=== PATIENT | male | born 1950 | race Caucasian/White ===

== ENCOUNTER 2016-10-14 21:37 | Emergency (ER) | payer MEDICARE, OTHER ==
[~2016-10-14] VITALS: Ht 180.3 cm; Wt 94.0 kg
[~2016-10-14 21:37] MED LIST: AMOX500T PO; ASPI81CH CHEW; LISI-363 PO; LISI-515 PO; METO25TA6 PO; MULT-65 PO; PRIL20CA9 PO; TOPR25TA PO
[2016-10-14 21:47] VITALS: BP 146/84; PULSE 74; RESP 20; TEMP 97.4; O2SAT 100
--- NOTE | 2016-10-14 22:24 | PD ---
HPI Chief Complaint: Abdominal Pain Time Seen by Provider: 22:03 Travel History International Travel<30 days: No Contact w/Intl Traveler<30days: No Traveled to known affect area: No History of Present Illness HPI The patient is 65-year-old male that complains of right upper quadrant pain shortly after eating a bowl of corn chowder. This began at 8:30 PM tonight. He does have a history of gallstones and gallbladder colic. He still has his gallbladder. His only abdominal surgery is an appendectomy. He denies any fever. He has slight nausea and pain at this time. The pain radiated to the back on both sides. He denies any melanotic or bloody stools. He denies any dysuria, frequency or urgency. PFSH Past Medical History Blood Disorders: No Cancer: Yes (esophageal cancer) Cardiovascular Problems: Yes Chemotherapy: No COPD: No Diabetes: No Diminished Hearing: No Endocrine: No Gastrointestinal Disorders: Yes GERD: No Glaucoma: Yes Genitourinary: No Hepatitis: No Hiatal Hernia: No Hypertension: Yes Immune Disorder: No Musculoskeletal: No Neurologic: No Psychiatric: No Respiratory: No Radiation Therapy: Yes Sleep Apnea: No Thyroid Disease: No Ulcer: No Past Surgical History Abdominal Surgery: Yes (rih had extreme pain and couldn't walk after surgery) AICD: No Appendectomy: Yes Cardiac Surgery: No Ear Surgery: No Endocrine Surgery: No Eye Surgery: Yes Genitourinary Surgery: Yes (HYDROCELE) Gynecologic Surgery: No Joint Replacement: No Oral Surgery: Yes (T AND A) Pacemaker: No Thoracic Surgery: No Other Surgery: Yes (hydrocele pain) Social History Alcohol Use: No Tobacco Use: No Substance Use: No Allergies-Medications (Allergen,Severity, Reaction): Coded Allergies: No Known Allergies (Verified , 08/10/16) Reported Meds & Prescriptions Reported Meds & Active Scripts Active [id number] M 500 Mg Cap 500 Mg PO TID Z.0.toprol Xl 25 Mg2 25 Mg Bertrand 25 Mg PO DAILY [id number] Mg 20 Mg Tab 1 Tab PO BID Reported Toprol XL (Metoprolol Succinate) 25 Mg Tab 25 Mg PO DAILY Lisinopril 20 Mg Tab 20 Mg PO DAILY Multi-Vitamin Daily (Multiple Vitamin) 1 Tab Tab 1 Tab PO DAILY Aspirin 81 Mg Chew 81 Mg CHEW DAILY Prilosec (Omeprazole) 20 Mg Cap 20 Mg PO DAILY Review of Systems Except as stated in HPI: all other systems reviewed are Neg Physical Exam Narrative GENERAL: The patient is alert, oriented 3 in moderate apparent distress with his right upper quadrant abdominal pain. His vital signs are normal except for blood pressure 146/84. SKIN: Warm and dry. No skin rash is seen. HEAD: Atraumatic. Normocephalic. EYES: Pupils equal and round. No scleral icterus. No injection or drainage. ENT: No nasal bleeding or discharge. Mucous membranes pink and moist. NECK: Trachea midline. No JVD. CARDIOVASCULAR: Regular rate and rhythm. No murmur appreciated. RESPIRATORY: No accessory muscle use. Clear to auscultation. Breath sounds equal bilaterally. GASTROINTESTINAL: Abdomen soft, with tenderness in the right upper quadrant over the gallbladder, nondistended. Hepatic and splenic margins not palpable. No guarding or rebound is present and Proctor's sign is negative. MUSCULOSKELETAL: No obvious deformities. No clubbing. No cyanosis. No edema. NEUROLOGICAL: Awake and alert. No obvious cranial nerve deficits. Motor grossly within normal limits. Normal speech. PSYCHIATRIC: Appropriate mood and affect; insight and judgment normal. Data Data Last Documented VS Vital Signs Date Time Temp Pulse Resp B/P Pulse Ox O2 Delivery O2 Flow Rate FiO2 10/14/16 21:47 97.4 74 20 146/84 100 Orders Electrocardiogram (10/14/16 ) Complete Blood Count With Diff (10/14/16 22:18) Comprehensive Metabolic Panel (10/14/16 22:18) Lipase (10/14/16 22:18) Ondansetron Inj (Zofran Inj) (10/14/16 22:30) Hydromorphone Pf Inj (Dilaudid Pf Inj) (10/14/16 22:30) Sodium Chlor 0.9% 1000 Ml Inj (Ns 1000 M (10/14/16 22:30) Labs Laboratory Tests Test 10/14/16 22:15 White Blood Count 5.4 TH/MM3 Red Blood Count 4.81 MIL/MM3 Hemoglobin 14.7 GM/DL Hematocrit 41.2 % Mean Corpuscular Volume 85.8 FL Mean Corpuscular Hemoglobin 30.5 PG Mean Corpuscular Hemoglobin 35.6 % Concent Red Cell Distribution Width 11.9 % Platelet Count 173 TH/MM3 Mean Platelet Volume 6.9 FL Neutrophils (%) (Auto) 57.9 % Lymphocytes (%) (Auto) 25.0 % Monocytes (%) (Auto) 11.7 % Eosinophils (%) (Auto) 4.9 % Basophils (%) (Auto) 0.5 % Neutrophils # (Auto) 3.2 TH/MM3 Lymphocytes # (Auto) 1.3 TH/MM3 Monocytes # (Auto) 0.6 TH/MM3 Eosinophils # (Auto) 0.3 TH/MM3 Basophils # (Auto) 0.0 TH/MM3 CBC Comment DIFF FINAL Differential Comment Sodium Level 142 MEQ/L Potassium Level 4.3 MEQ/L Chloride Level 107 MEQ/L Carbon Dioxide Level 28.0 MEQ/L Anion Gap 7 MEQ/L Blood Urea Nitrogen 31 MG/DL Creatinine 1.20 MG/DL Estimat Glomerular Filtration 60 ML/MIN Rate Random Glucose 117 MG/DL Calcium Level 8.7 MG/DL Total Bilirubin 0.5 MG/DL Aspartate Amino Transf 47 U/L (AST/SGOT) Alanine Aminotransferase 40 U/L (ALT/SGPT) Alkaline Phosphatase 66 U/L Total Protein 7.4 GM/DL Albumin 3.9 GM/DL Lipase 191 U/L [facility] Medical Decision Making Medical Screen Exam Complete: Yes Emergency Medical Condition: Yes Medical Record Reviewed: Yes Interpretation(s) The CBC is normal with a white count of only 5400. The complete metabolic profile shows a BUN of 31, AST of 47 but is otherwise normal. The lipase is normal. Differential Diagnosis Gallbladder colic, acute cholecystitis, colitis, pyelonephritis Narrative Course It is now 10:55 PM and the patient feels "100% better". This appears to be gallbladder colic. The white count does not show any evidence of infection/ inflammation in the complete metabolic profile is normal except for the minimal elevation of the AST. Plan: The patient should avoid fatty foods and is given prescriptions for Zofran and Percocet. He should consult with the surgeon, going through Dr. Alfaro. Diagnosis Primary Impression: Gallbladder colic Med/Other Pt SpecificInfo: Prescription(s) given Daniel Cunningham MD Oct 14, 2016 22:24
[2016-10-14 22:30] LABS: AUTOMATED NEUTROPHIL # 3.2 TH/MM3 (1.8-7.7); BASOPHIL % 0.5 % (0.0-2.0); EOSINOPHIL # 0.3 TH/MM3 (0-0.4); EOSINOPHIL % 4.9 % (0.0-4.0); HEMATOCRIT 41.2 % (39.0-51.0); HEMO FLAGS DIFF FINAL; LYMPHOCYTE # 1.3 TH/MM3 (1.0-4.8); MEAN CELL VOLUME 85.8 FL (80.0-100.0); MEAN CORPUSCULAR HEMOGLOBIN 30.5 PG (27.0-34.0); MEAN CORPUSCULAR HGB CONC 35.6 % (32.0-36.0); MONO % 11.7 % (0.0-8.0); NEUT % 57.9 % (16.0-70.0); PLATELET COUNT 173 TH/MM3 (150-450); RED BLOOD COUNT 4.81 MIL/MM3 (4.50-5.90); RED CELL DISTRIBUTION WIDTH 11.9 % (11.6-17.2); WHITE BLOOD COUNT 5.4 TH/MM3 (4.0-11.0)
[2016-10-14] MEDS ORDERED: SODIUM CHLOR 0.9% 1000 ML INJ 1,000 ML IV SCH (22:30)
[2016-10-14] MEDS ORDERED: ONDANSETRON HCL 4 MG/2 ML VIAL IV ONE (22:30)
[2016-10-14] MEDS ORDERED: HYDROmorphone HCL PF 1 MG/ML VIAL IVP ONE (22:30)
[2016-10-14 22:36] LABS: CHLORIDE 107 MEQ/L (98-107); POTASSIUM 4.3 MEQ/L (3.5-5.1); SODIUM (NA) 142 MEQ/L (136-145)
[2016-10-14 22:40] LABS: ANION GAP 7 MEQ/L (5-15); BLOOD UREA NITROGEN 31 MG/DL (7-18)
[2016-10-14 22:43] LABS: ALT (GPT) 40 U/L (12-78); AST (GOT) 47 U/L (15-37); GLOMERULAR FILTRATION RATE 60 ML/MIN (>89)
[2016-10-14 22:45] LABS: TOTAL BILIRUBIN ADULT 0.5 MG/DL (0.2-1.0)
[2016-10-14 22:46] LABS: ALKALINE PHOSPHATASE 66 U/L (45-117)
[2016-10-14 22:50] VITALS: BP 150/81; PULSE 77; RESP 18; O2SAT 98
[2016-10-14] MEDS ORDERED: PERC5TAB12 PO (23:00)
[2016-10-14] MEDS ORDERED: ZOFR4TAB PO (23:00)
[2016-10-14 23:05] VITALS: RESP 18
[2016-10-14 23:25] VITALS: BP 126/80
--- NOTE | 2016-10-15 19:32 | EKG ---
Date Performed: 10/14/2016 Time Performed: 22:02:58 PTAGE: 65 years EKG: Sinus rhythm Since previous tracing, no significant change noted Normal ECG PREVIOUS TRACING : 02/12/2016 23.23 DOCTOR: Gerald Gillette Interpretating Date/Time 10/15/2016 19:32:10
[2016-12-07] MEDS ORDERED: STOO100C PO (13:50)
[2016-12-07] MEDS ORDERED: AMLO10TA2 PO (13:50)
[2016-12-07] MEDS ORDERED: ARTH650T PO (13:50)
[2016-12-07] MEDS ORDERED: ATOR20TA15 PO (13:50)
== END 2016-10-14 23:24 | disposition home or self-care (01) ==
LOC: PHED 21:37
DX: K80.20 Calculus of gallbladder without cholecystitis without obstruction (principal); I10 Essential (primary) hypertension
CPT/HCPCS: 80053; 83690; 85025; 93005; 96374; 96375; 99284; J1170; J2405; J7030

== ENCOUNTER → 2016-12-08 | Day surgery (SDC) | payer OTHER ==
[~2016-12-08] VITALS: Ht 180.3 cm; Wt 90.5 kg
[~2016-12-08] MED LIST changes: +ACETAMINOPHEN 1000 MG/100 ML VIAL IV ONE; +ACETAMINOPHEN 1000 MG/100 ML VIAL IV SCH; +AMLO10TA2 PO; -AMOX500T PO; +APREPITANT 40 MG CAP ONE; +ARTH650T PO; +ATOR20TA15 PO; +BUPIVACAINE/EPINEPHRINE 0.25% 50 ML VIAL ONE; +CHLORHEXIDINE GLUCONATE 2 % 1 PACK (2 CLOTHS) TOPICAL PRN; +DEXAMETHASONE SOD PHOS 4 MG/ML VIAL ONE; +DO NOT ADM ANY ANTICOAGULANT DRUGS PRN; +FAMOTIDINE 20 MG/2 ML VIAL ONE; +INSULIN HUMAN REGULAR 1,000 UNITS/10 ML VIAL SQ PRN; +KETOROLAC TROMETHAMINE 30 MG/ML (IVP) VIAL IV PUSH ONE; +KETOROLAC TROMETHAMINE 30 MG/ML (IVP) VIAL ONE; +LACTATED RINGER'S 1000 ML IV PRN; -LISI-363 PO; -METO25TA6 PO; +METOPROLOL TARTRATE 25 MG TAB PO PRN; +MIDAZOLAM HCL 2 MG/2 ML VIAL ONE; +MORPHINE SULFATE 4 MG/ML INJ IV PRN; +ONDANSETRON HCL 4 MG/2 ML VIAL IV PRN; +ONDANSETRON HCL 4 MG/2 ML VIAL IV PUSH ONE; +ONDANSETRON HCL 4 MG/2 ML VIAL IV PUSH SCH; +POVIDONE IODINE 5% (ANTISEPSIS KIT) 4 APPLICATIONS EACH NARE PRN; +PROPOFOL 200 MG/20 ML AMP IV ONE; +SODIUM CHLORID 0.9% 500 ML IV PRN; +STOO100C PO; +SUGAMMADEX SODIUM 200 MG/2 ML VIAL IV PUSH ONE; +ZOFR4TAB PO; +ceFAZolin 2 GM PREMIX 50 ML IV SCH; +ePHEDrine/NS 25 MG/5 ML SYR IV ONE; +fentaNYL CITRATE 250 MCG/5 ML AMP ONE; +metroNIDAZOLE 500 MG INJ 100 ML IV ONE; +metroNIDAZOLE 500 MG INJ 100 ML IV SCH; +oxyCODONE/ACETAMINOPHEN 5 MG/325 MG TAB PO PRN
[2016-12-08 09:05] VITALS: BP 145/83; PULSE 66; RESP 18; TEMP 98.1; O2SAT 98
[2016-12-08 13:06] VITALS: BP 134/82; PULSE 83; RESP 16; TEMP 98.1; O2SAT 95
--- NOTE | 2016-12-10 11:31 | MP ---
cc: KASH ONOFRE DATE OF 1950 DATE OF OPERATION 12/08/2016 PREOPERATIVE DIAGNOSIS Symptomatic cholelithiasis. POSTOPERATIVE DIAGNOSIS Symptomatic cholelithiasis. PROCEDURE Laparoscopic cholecystectomy. SURGEON Kash Onofre MD ANESTHESIA General endotracheal anesthesia. ESTIMATED BLOOD LOSS 0. FINDINGS Gallbladder with stones. SPECIMEN Gallbladder with stones. COMPLICATIONS None. OPERATION The patient was brought to the operating room and placed on the operating table in a supine position. A bilateral sequential inflation device was placed on the lower extremities. General anesthesia was instituted, antibiotics initiated. The abdomen was prepped and draped sterilely. A point in the periumbilical region was anesthetized with 0.25% Marcaine with epinephrine. A skin incision was made. A 5 mm Optiview port was placed under direct vision, a pneumoperitoneum created. Under direct vision a 12 mm subxiphoid and two 5 mm right upper quadrant ports were placed. Prior to placement of all ports the skin and peritoneum were anesthetized with 0.25% Marcaine with epinephrine. The patient was placed in reverse Trendelenburg position, right side up. The gallbladder was retracted into the upper abdomen. The infundibulum was retracted. Calot's triangle was opened. The hepatoduodenal ligament was incised. The cystic artery was identified. It was circumferentially dissected with the Harmonic scalpel and then divided with the Harmonic scalpel. The cystic duct was identified, circumferentially dissected and divided with the Harmonic scalpel. The gallbladder was removed from the liver bed using the Harmonic scalpel. It was retrieved from the peritoneal cavity in an Endopouch through the 12 mm port site. The operative site was inspected. Hemostasis was present. There was no evidence of bile leak. CO2 was released. All ports were removed. All skin incisions were closed with 4-0 Monocryl. The abdominal wall was cleaned and a sterile dressing placed. The patient was awakened and taken to the recovery room. MD BRODERICK Moreira/CHRISTINA /11:27 AM /11:17 AM
== END | disposition home or self-care (01) ==
LOC: HSDC 08:09
PROVIDERS: ATTEND Surgery
DX: K80.10 Calculus of gallbladder with chronic cholecystitis without obstruction (principal); I10 Essential (primary) hypertension
CPT/HCPCS: 00790; 47562; 88304; J0131; J1100; J1885; J2250; J2405; J3010; J7120; J8501

== ENCOUNTER 2017-05-15 10:41 | Emergency (ER) | payer MEDICARE, OTHER ==
[~2017-05-15] VITALS: Ht 180.3 cm; Wt 95.0 kg
[~2017-05-15 10:41] MED LIST changes: -ACETAMINOPHEN 1000 MG/100 ML VIAL IV ONE; -ACETAMINOPHEN 1000 MG/100 ML VIAL IV SCH; -APREPITANT 40 MG CAP ONE; -BUPIVACAINE/EPINEPHRINE 0.25% 50 ML VIAL ONE; -CHLORHEXIDINE GLUCONATE 2 % 1 PACK (2 CLOTHS) TOPICAL PRN; -DEXAMETHASONE SOD PHOS 4 MG/ML VIAL ONE; -DO NOT ADM ANY ANTICOAGULANT DRUGS PRN; -FAMOTIDINE 20 MG/2 ML VIAL ONE; -INSULIN HUMAN REGULAR 1,000 UNITS/10 ML VIAL SQ PRN; -KETOROLAC TROMETHAMINE 30 MG/ML (IVP) VIAL IV PUSH ONE; -KETOROLAC TROMETHAMINE 30 MG/ML (IVP) VIAL ONE; -LACTATED RINGER'S 1000 ML IV PRN; -METOPROLOL TARTRATE 25 MG TAB PO PRN; -MIDAZOLAM HCL 2 MG/2 ML VIAL ONE; -MORPHINE SULFATE 4 MG/ML INJ IV PRN; -ONDANSETRON HCL 4 MG/2 ML VIAL IV PRN; -ONDANSETRON HCL 4 MG/2 ML VIAL IV PUSH ONE; -ONDANSETRON HCL 4 MG/2 ML VIAL IV PUSH SCH; -POVIDONE IODINE 5% (ANTISEPSIS KIT) 4 APPLICATIONS EACH NARE PRN; -PROPOFOL 200 MG/20 ML AMP IV ONE; -SODIUM CHLORID 0.9% 500 ML IV PRN; -SUGAMMADEX SODIUM 200 MG/2 ML VIAL IV PUSH ONE; -ceFAZolin 2 GM PREMIX 50 ML IV SCH; -ePHEDrine/NS 25 MG/5 ML SYR IV ONE; -fentaNYL CITRATE 250 MCG/5 ML AMP ONE; -metroNIDAZOLE 500 MG INJ 100 ML IV ONE; -metroNIDAZOLE 500 MG INJ 100 ML IV SCH; -oxyCODONE/ACETAMINOPHEN 5 MG/325 MG TAB PO PRN
[2017-05-15 10:45] VITALS: BP 158/91; PULSE 75; RESP 16; TEMP 98.1; O2SAT 97
[2017-05-15] MEDS ORDERED: ARTH650T6 PO (10:55)
[2017-05-15] MEDS ORDERED: OMEP20TA PO (10:55)
[2017-05-15] MEDS ORDERED: CEPH-460 PO (11:08)
--- NOTE | 2017-05-15 11:08 | PD ---
HPI Chief Complaint: Skin Problem Time Seen by Provider: 11:01 Travel History International Travel<30 days: No Contact w/Intl Traveler<30days: No Traveled to known affect area: No History of Present Illness HPI Patient 66-year-old male who was working in his garden a few days ago but he didn't really notice anything happening and then a few days after he noticed some itching on his right forearm followed by some redness. Patient denies any generalized fever. He is here with his who states that she had something similar before and then had streaks going up her arms and no subjective going to the heart. He appears well and is no distress. States that his arm feels warm but otherwise he feels well. PFSH Past Medical History Blood Disorders: No Cancer: Yes (nasophageal cancer) Cardiovascular Problems: Yes Chemotherapy: No COPD: No Diabetes: No Diminished Hearing: No Endocrine: No Gastrointestinal Disorders: Yes (REFLUX) GERD: No Glaucoma: Yes Genitourinary: No Hepatitis: No Hiatal Hernia: No Hypertension: Yes Immune Disorder: No Medical other: Yes (hx of glaucoma) Musculoskeletal: No Neurologic: No Psychiatric: No Reproductive: No Respiratory: No Radiation Therapy: Yes Sleep Apnea: No Thyroid Disease: No Ulcer: No Tetanus Vaccination: < 5 Years Influenza Vaccination: Yes ?: Not Past Surgical History Abdominal Surgery: Yes (APPENDECTOMY, BILATERAL INGUINAL HERNIA REPAIR) AICD: No Appendectomy: Yes Cardiac Surgery: No Cholecystectomy: Yes Ear Surgery: No Endocrine Surgery: No Eye Surgery: Yes Genitourinary Surgery: Yes (HYDROCELE) Gynecologic Surgery: No Joint Replacement: No Oral Surgery: Yes (T AND A) Pacemaker: No Thoracic Surgery: No Other Surgery: Yes (hydrocele pain) Social History Alcohol Use: No Tobacco Use: No Substance Use: No Allergies-Medications (Allergen,Severity, Reaction): Coded Allergies: No Known Allergies (Verified , 05/15/17) Reported Meds & Prescriptions Reported Meds & Active Scripts Active Keflex (Cephalexin) 500 Mg Capsule 500 Mg PO Q6H 7 Days Reported Arthritis Pain Reliever ER 8 HR (Acetaminophen) 650 Mg Tab 650 Mg PO Q8HR PRN Omeprazole 20 Mg Tab 20 Mg PO DAILY Stool Softener (Docusate Sodium) 100 Mg Cap 1 Cap PO DAILY Atorvastatin (Atorvastatin Calcium) 20 Mg Tab 20 Mg PO HS Amlodipine (Amlodipine Besylate) 10 Mg Tab 10 Mg PO DAILY Toprol XL (Metoprolol Succinate) 25 Mg Tab 25 Mg PO DAILY Lisinopril 20 Mg Tab 20 Mg PO DAILY Multi-Vitamin Daily (Multiple Vitamin) 1 Tab Tab 1 Tab PO DAILY Aspirin 81 Mg Chew 81 Mg CHEW DAILY Review of Systems Except as stated in HPI: all other systems reviewed are Neg Physical Exam Narrative GENERAL: Well-nourished, well-developed patient., Quite pleasant, laughing in the room with his . SKIN: Is a small area of erythema over the volar aspect of the right forearm, fairly circular. There is an indurated firm area in the middle without any fluctuant no palpable abscess. Minimally tender to palpation. Erythema is light pink side. Could be reactive secondary to bug bite other possibilities are injury from a thorn. Total area is about a silver dollar size. HEAD: Normocephalic. EYES: No scleral icterus. No injection or drainage. NECK: Supple, trachea midline. No JVD or lymphadenopathy. CARDIOVASCULAR: Regular rate and rhythm without murmurs, gallops, or rubs. RESPIRATORY: Breath sounds equal bilaterally. No accessory muscle use. GASTROINTESTINAL: Abdomen soft, non-tender, nondistended. MUSCULOSKELETAL: No cyanosis, or edema. BACK: Nontender without obvious deformity. No CVA tenderness. Data Data Last Documented VS Vital Signs Date Time Temp Pulse Resp B/P (MAP) Pulse Ox O2 Delivery O2 Flow Rate FiO2 05/15/17 10:45 98.1 75 16 158/91 (113) 97 Orders Orders Cephalexin (Keflex) (05/15/17 12:00) MDM Medical Decision Making Medical Screen Exam Complete: Yes Emergency Medical Condition: Yes Differential Diagnosis Cellulitis, reactive erythema, bug bite, sepsis unlikely. Narrative Course patient roomed in emergency department, he appears well in no distress. At this time I think that the most likely scenario is that he was bitten by some bug and he's had a reactive soft tissue inflammation. Second consideration is for infection. At this point I think coverage with antibiotics is appropriate given the approach of Tom and may be several days before he is able to return. He is agreeable. Discussed symptomatic management otherwise Benadryl creams and discussed return to ED criteria follow-up with primary care physician. Diagnosis Primary Impression: Cellulitis Qualified Codes: L03.113 - Cellulitis of right upper limb Med/Other Pt SpecificInfo: Prescription(s) given Scripts Cephalexin (Keflex) 500 Mg Capsule 500 MG PO Q6H for Infection for 7 Days, CAP 0 Refills Prov: Srinivas Hallman MD 05/15/17 Disposition: 01 DISCHARGE HOME Condition: Stable Srinivas Hallman MD May 15, 2017 11:08
[2017-05-15] MEDS ORDERED: CEPHALEXIN MONOHYDRATE 500 MG CAP PO SCH (12:00)
== END 2017-05-15 11:25 | disposition home or self-care (01) ==
LOC: PHED 10:41
DX: L03.113 Cellulitis of right upper limb (principal)
CPT/HCPCS: 99283